=== PATIENT | male | born 1975 | race Caucasian/White ===

== ENCOUNTER 2022-10-17 17:24 | Emergency (ER) | payer OTHER ==
[2022-10-17] MEDS ORDERED: KETOROLAC 15 MG/ML 1 ML VIAL IM STA (18:02)
[2022-10-17] MEDS ORDERED: IBUPROFEN 600 MG TAB PO STA (18:38)
--- NOTE | 2022-10-17 18:38 | ED ---
Lower Extremity Injury HPI - General Chief Complaint: Extremity Injury, Lower Stated Complaint: R Knee injury Time Seen by Provider: 10/17/22 17:58 Source: patient, RN notes reviewed Mode of arrival: ambulatory Limitations: no limitations - History of Present Illness Initial Comments: This is a 47-year-old male who presents to the emergency department for a right knee injury. States that 2 days ago he twisted his knee playing basketball. He was jumping up to make a shot and when he came down he twisted his right knee. Weightbearing is difficult, however he is still able to ambulate. He is not taking anything to treat his pain. Pain is primarily below the knee on the right side. Denies any fevers, chills, sore throat, cough, dyspnea, chest pain, palpitations, abdominal pain, nausea, vomiting, diarrhea, back pain, or headaches. MD Complaint: knee injury Injury: Knee: Right Context: fall - Related Data Previous Rx's Medication Instructions Recorded HYDROcodone/APAP 10-325MG [[place] 1 tab PO Q6HR PRN 3 Days #12 tab 10/17/22 10-325] Ibuprofen [Motrin] 600 mg PO Q6HR PRN #15 tab 10/17/22 Allergies Allergy/AdvReac Type Severity Reaction Status Date / Time No Known Allergies Allergy Verified 10/17/22 17:53 Review of Systems ROS Statement: Those systems with pertinent positive or pertinent negative responses have been documented in the HPI. ROS Other: All systems not noted in ROS Statement are negative. Past Medical History History of Any Multi-Drug Resistant Organisms: None Reported Past Surgical History: Orthopedic Surgery Past Psychological History: Anxiety, Depression Smoking Status: Never smoker Past Alcohol Use History: None Reported Past Drug Use History: None Reported General Exam Limitations: no limitations General appearance: alert, in no apparent distress Head exam: Present: atraumatic, normocephalic, normal inspection Respiratory exam: Present: normal lung sounds bilaterally. Absent: respiratory distress, wheezes, rales, rhonchi, stridor Cardiovascular Exam: Present: regular rate, normal rhythm, normal heart sounds. Absent: systolic murmur, diastolic murmur, rubs, gallop, clicks Extremities exam: Present: other (Tenderness to palpation inferior and laterally to the right patella, more so over the fibula. Minor overlying swelling. Limited passive range of motion secondary to pain. 2+ DP and PT pulses. Capillary refill less than 1 second.) Neurological exam: Present: alert, oriented X3, CN II-XII intact Psychiatric exam: Present: normal affect, normal mood Skin exam: Present: warm, dry, intact, normal color. Absent: rash Course Vital Signs 10/17/22 10/17/22 17:46 20:07 Temperature 98.1 F 98.0 F Pulse Rate 68 60 Respiratory 18 17 Rate Blood Pressure 138/84 139/90 O2 Sat by Pulse 100 100 Oximetry Medical Decision Making - Medical Decision Making This is a 47-year-old male who presents to the emergency department for right knee pain. Was pt. sent in by a medical professional or institution? @ -No Did you speak to anyone other than the patient for history? @ -No Did you review nursing and triage notes? @ -Yes, and I agree, it is accurate with regards to the patient's symptoms. Were old charts reviewed? @ -No Differential Diagnosis? @ -Differential Knee Injury: Fracture, dislocation, sprain, contusion, meniscus injury, ACL/LCL/MCL/PCL injury, this is not meant to be an all-inclusive list. EKG interpreted by me (3pts min.)? @ -Not obtained X-rays interpreted by me (1pt min.)? @ -X-ray of the right knee obtained. My interpretation reveals a proximal fibular fracture. CT interpreted by me (1pt min.)? @ -Not obtained U/S interpreted by me (1pt. min.)? @ -Not obtained What testing was considered but not performed? (CT, X-rays, U/S, labs)? Why? @ -None What meds were considered but not given? Why? @ -None Did you discuss the management of the patient with other professionals? @ -No Did you reconcile home meds? @ -No Was smoking cessation discussed for >3mins.? @ -No Was critical care preformed (if so, how long)? @ -No Were there social determinants of health that impacted care today? How? (Homelessness, low income, unemployed, alcoholism, drug addiction, transportation, low edu. Level, literacy, decrease access to med. care, fdc, rehab)? @ -No Was there de-escalation of care discussed even if they declined? (Discuss DNR or withdrawal of care, Hospice)? @ -No What co-morbidities impacted this encounter? (DM, HTN, Smoking, COPD, CAD, Cancer, CVA, Hep., AIDS, mental health diagnosis, sleep apnea, morbid obesity)? @ -Hx of right ACL tear Was patient admitted / discharged? @ -Discharged. X-ray of the right knee obtained. While the radiologist did not note any irregularities on the knee x-ray, on review of the x-ray with Dr. Leone, we noticed concern for a right proximal fibular fracture. This is also where the patient had tenderness on exam. Findings reviewed with the patient. He was placed in a knee immobilizer and given orthopedic follow-up. Rx for Ibuprofen and [place] provided with dosing instructions reviewed. He is advised to take the [place] sparingly when the pain is the most severe and to otherwise alternate with ibuprofen and Tylenol. He is also instructed to apply ice for 15-20 minutes every 2-3 hours and to keep the leg elevated. Undiagnosed new problem with uncertain prognosis? @ -None Drug Therapy requiring intensive monitoring for toxicity (Heparin, Nitro, Insulin, Cardizem)? @ -None Were any procedures done? @ -None Diagnosis/symptom? @ -Right fibular fracture Acute, or Chronic, or Acute on Chronic? @ -Acute Uncomplicated (without systemic symptoms) or Complicated (systemic symptoms)? @ -Uncomplicated Side effects of treatment? @ -None Exacerbation, Progression, or Severe Exacerbation] @ -Not applicable Poses a threat to life or bodily function? @ -No Return precautions reviewed in depth, the patient is instructed to return to the emergency department with any new, worsening, or concerning symptoms. Patient verbalized understanding. This case was discussed in detail with the attending ED physician, Dr. Leone. Presentation, findings, and treatment plan discussed in detail as well. - Radiology Data Radiology results: report reviewed, image reviewed Disposition Clinical Impression: Closed right fibular fracture Disposition: HOME SELF-CARE Instructions (If sedation given, give patient instructions): Leg Fracture (ED), Knee Immobilizer (ED) Additional Instructions: Return to the emergency department with any new, worsening, or concerning symptoms. Alternate with ibuprofen and Tylenol as needed for pain relief. Take the [place] sparingly when your pain is the most severe. Apply ice for 15-20 minutes every 2-3 hours and keep the knee elevated as much as possible. Contact orthopedics as listed below for a follow-up appointment. You can also contact an orthopedic provider closer to home if you would like. Follow up with your primary care provider in 1-2 days. Prescriptions: Ibuprofen [Motrin] 600 mg PO Q6HR PRN #15 tab PRN Reason: Pain HYDROcodone/APAP 10-325MG [[place] 10-325] 1 tab PO Q6HR PRN 3 Days #12 tab PRN Reason: Pain Is patient prescribed a controlled substance at d/c from ED?: Yes When asked, does pt state using other controlled substances?: No If prescribed controlled substance>3 days was MAPS reviewed?: Prescribed <3 Days Referrals: Nonstaff,Physician [Primary Care Provider] - 1-2 days Devendra Clifford MD [STAFF PHYSICIAN] - 1-2 days
[2022-10-17] MEDS ORDERED: Acetaminophen-Codeine 300-30mg TAB PO STA (18:39)
[2022-10-17] MEDS ORDERED: IBUPROFEN 600 MG STARTER PACK 4 TAB BTL PO STA (19:20)
[2022-10-17] MEDS ORDERED: ACET/COD 300 MG/30 MG STARTER PACK 6 TAB BTL PO STA (19:20)
--- NOTE | 2022-10-17 19:45 | XR ---
EXAMINATION TYPE: XR knee complete RT DATE OF EXAM: 10/17/2022 COMPARISON: None HISTORY: Pain TECHNIQUE: Three-view right knee FINDINGS: No acute fracture or dislocation is evident. Joint spaces have mild diffuse narrowing. Prio r ACL repair is evident. No joint effusion is evident. IMPRESSION: 1. No acute osseous abnormality. Follow up exams can can be performed as clinically indicated.
[2022-10-17] MEDS ORDERED: HYDROcodone/APAP 10-325MG 1 EACH TAB PO ONE (19:59)
[2022-10-17 20:07] VITALS: BP 139/90; PULSE 60; RESP 17; TEMP 98
== END 2022-10-17 20:07 | disposition home or self-care (01) ==
LOC: EC 17:24
DX: S82.401A Unspecified fracture of shaft of right fibula, initial encounter for closed fracture (principal); Z86.59 Personal history of other mental and behavioral disorders; X50.1XXA Overexertion from prolonged static or awkward postures, initial encounter; Y93.67 Activity, basketball
CPT/HCPCS: 99284